=== PATIENT | female | born 1955 | race Caucasian/White ===

== ENCOUNTER → 2017-10-09 | Outpatient (CLI) | payer BC ==
--- NOTE | 2017-10-09 11:37 | DIAGNOSTIC IMAGING REPORT ---
SOFT TISS HEAD/NECK-THYROID HISTORY: Thyroid nodules THYROID NODULES COMPARISON: None. FINDINGS: Right lobe: Maximum dimension 4.2 cm. Cystic nodule lower pole measuring 7 mm at maximum. Several additional hypoechoic nodular densities measuring to 2 mm. Left lobe: Maximum dimension 4.4 cm. Small 2.8 mm nodule lower pole. Isthmus: No nodules. IMPRESSION: Findings consistent with a minimal multinodular thyroid. All nodules are less than 7 mm. A 6-12 month follow-up is suggested. The above report was generated using voice recognition software. It may contain grammatical, syntax or spelling errors. Electronically signed by: Evangelista James M.D. 10/09/2017 11:35 AM Dictated Date/Time: 10/09/2017 11:34 AM
== END | disposition home or self-care (01) ==
LOC: C.ULTR 10:36
PROVIDERS: ATTEND Family Medicine
DX: E04.2 Nontoxic multinodular goiter (principal)